=== PATIENT | male | born 1980 | race Hispanic/Latino ===

== ENCOUNTER 2021-01-01 01:07 | Emergency (ER) | payer SELFPAY ==
[~2021-01-01] VITALS: Ht 180.3 cm; Wt 83.9 kg
[2021-01-01] MEDS ORDERED: ASPIRIN 325 MG TAB PO ONE (01:30)
[2021-01-01] MEDS ORDERED: ASPIRIN 325 MG TAB ONE (01:53)
== END 2021-01-01 02:27 | disposition home or self-care (01) ==
LOC: FSED 01:25
DX: R07.89 Other chest pain (principal); R94.31 Abnormal electrocardiogram [ECG] [EKG]
CPT/HCPCS: 71046; 93041; 99284